=== PATIENT | female | born 1990 | race Native Hawaiian/Other Pacific Islander ===

== ENCOUNTER 2016-08-06 13:23 | Emergency (ER) | payer OTHER ==
[2016-08-06 13:30] VITALS: BP 133/91; PULSE 69; RESP 18; TEMP 97.5; O2SAT 100
--- NOTE | 2016-08-06 14:08 | ED PDOC ---
HPI: Skin/Bite Injury Time Seen by Provider: 08/06/16 13:53 Chief Complaint (Nursing): Abnormal Skin Integrity Chief Complaint (Provider): Laceration, right hand History Per: Patient History/Exam Limitations: no limitations Onset/Duration Of Symptoms: Mins Current Symptoms Are (Timing): Still Present Location Of Injury: Right: Hand Quality Of Symptoms: Painful Severity: Mild Pain Scale Rating Of: 2 Additional Complaint(s): PT states she cut her hand on metal can of condensed milk. Unknown tetanus. No active bleeding Past Medical History Reviewed: Historical Data, Nursing Documentation, Vital Signs Vital Signs: Last Vital Signs Temp 97.5 F L 08/06/16 13:26 Pulse 69 08/06/16 13:26 Resp 18 08/06/16 13:26 BP 133/91 H 08/06/16 13:26 Pulse Ox 100 08/06/16 14:08 - Medical History PMH: Anemia, Asthma - Surgical History Surgical History: Tonsillectomy - Family History Family History: States: No Known Family Hx - Living Arrangements Living Arrangements: With Family - Social History Current smoker - smoking cessation education provided: No Alcohol: None Drugs: Denies - Allergies Allergies/Adverse Reactions: Allergies Allergy/AdvReac Type Severity Reaction Status Date / Time amoxicillin Allergy RASH Verified 08/06/16 13:25 Review of Systems ROS Statement: Except As Marked, All Systems Reviewed And Found Negative Skin: Positive for: Other Physical Exam - Reviewed Nursing Documentation Reviewed: Yes Vital Signs Reviewed: Yes - Physical Exam Appears: Positive for: Well, Non-toxic, No Acute Distress Head Exam: Positive for: ATRAUMATIC, NORMAL INSPECTION, NORMOCEPHALIC Skin: Positive for: Warm. Negative for: Normal Color (2 cm superficial laceration right anterior hand, base of thumb ) Eye Exam: Positive for: Normal appearance ENT: Positive for: Normal ENT Inspection Neck: Positive for: Normal, Painless ROM Respiratory: Negative for: Accessory Muscle Use, Respiratory Distress Back: Positive for: Normal Inspection Extremity: Positive for: Normal ROM Neurologic/Psych: Positive for: Alert, Oriented - ECG O2 Sat by Pulse Oximetry: 100 Medical Decision Making Medical Decision Making: Wound irrigated. Dermabond and steri-strips applied. Disposition - Clinical Impression Clinical Impression: Hand laceration, Tetanus toxoid vaccination administered at current visit - Patient ED Disposition Is Patient to be Admitted: No Counseled Patient/Family Regarding: Diagnosis, Need For Followup - Disposition Referrals: [facility] [Outside] Disposition: Routine/Home Disposition Time: 14:21 Condition: GOOD Additional Instructions: Do not get wet for 5 days. Instructions: Skin Adhesive Care (ED)
[2016-08-06] MEDS ORDERED: TDAP Vaccine 0.5 mL Syr IM ONE (14:09)
== END 2016-08-06 14:50 | disposition home or self-care (01) ==
LOC: H.ER 13:23
DX: S61.411A Laceration without foreign body of right hand, initial encounter (principal); W26.8XXA Contact with other sharp object(s), not elsewhere classified, initial encounter; Z23 Encounter for immunization